=== PATIENT | male | born 1975 | race African-American/Black ===

== ENCOUNTER 2020-01-21 13:17 | Emergency (ER) | payer OTHER, SELFPAY ==
--- NOTE | ~2020-01-21 | CT_ITS ---
EXAMINATION: CT cervical spine wo con DATE: 01/21/2020 14:46 INDICATION: Neck pain and left arm tingling TECHNIQUE: Computed tomography (CT) of the cervical spine was performed without intravenous contrast. Automated exposure control and iterative reconstruction technique were employed. The dose-length pro duct was 380.17 mGy-cm. COMPARISON: None FINDINGS: Straightening of the normal cervical lordosis. No spondylolisthesis or facet subluxation. Vertebral b aquilino heights are normal. No fracture. Disc heights are normal. Cervical soft tissues are normal. Emphy sema with bullous changes most prominent at the right apex. Middle ear cavities and visualized portio ns of the sphenoid sinus, mastoid air cells and airway are clear. The following disc levels are speci fically discussed: C2-C3: Disc is mildly bulging. There is minimal bilateral uncovertebral joint osteoarthritis. There i s minimal bilateral facet joint osteoarthritis. There is no neural foraminal stenosis. There is mild central canal stenosis. C3-C4: Moderate-sized central disc protrusion versus extrusion. There is mild bilateral uncovertebral joint osteoarthritis. There is minimal bilateral facet joint osteoarthritis. There is mild bilateral neural foraminal stenosis. There is moderate central canal stenosis measuring 5 mm in the mid sagitt al plane. C4-C5: Disc is bulging, eccentric to the left. There is mild bilateral uncovertebral joint osteoarthr itis. There is minimal bilateral facet joint osteoarthritis. There is mild bilateral neural foraminal stenosis. There is mild central canal stenosis. C5-C6: Disc is mildly bulging. There is mild bilateral uncovertebral joint osteoarthritis. There is m inimal bilateral facet joint osteoarthritis. There is mild bilateral neural foraminal stenosis. There is mild central canal stenosis. C6-C7: Disc is mildly bulging. There is mild bilateral uncovertebral joint osteoarthritis. There is m inimal bilateral facet joint osteoarthritis. There is mild bilateral neural foraminal stenosis. There is mild central canal stenosis. C7-T1: The disc does not extend beyond the endplate margin. There is no uncovertebral joint osteoarth ritis. There is mild bilateral facet joint osteoarthritis. There is minimal left neural foraminal claribel nosis. There is no central canal stenosis. IMPRESSION: 1. Mild cervical spondylosis most notable for a moderate sized disc protrusion versus extrusion at C3 -C4 which results in moderate central canal stenosis. Reviewed, dictated and finalized at location A. IMPRESSION: 1. Mild cervical spondylosis most notable for a moderate sized disc protrusion versus extrusion at C3-C4 which results in moderate central canal stenosis.
[2020-01-21 13:19] VITALS: BP 121/73; PULSE 101; RESP 18; TEMP 36.4; O2SAT 98
[2020-01-21] MEDS: KETOROLAC (*BKC) 60 MG/2 ML VIAL IM (14:27)
[2020-01-21 15:00] VITALS: TEMP 36.4
--- NOTE | 2020-01-21 15:00 | ED.UPPEXIN ---
HPI - Extremity Injury (Upper) General Chief Complaint: Extremity Injury, Upper Stated Complaint: sciatic nerve Time Seen by Provider: 01/21/20 14:04 Source: patient Mode of arrival: ambulatory Limitations: no limitations History of Present Illness HPI narrative: This is a 44 year old male that presents to the ER for acute on chronic neck pain. Reports he has had trouble with his neck for over 10 years. Reports no new injury or trauma. Reports over the last week the pain has worsened. He takes gabapentin and a muscle relaxer at home for this. Reports he has tingling in the left arm. Denies weakness, decreased range of motion, or numbness. Related Data Home Medications Medication Instructions Recorded Confirmed No Home Medications 01/21/20 01/21/20 Allergies Allergy/AdvReac Type Severity Reaction Status Date / Time No Known Allergies Allergy Verified 01/21/20 13:43 Review of Systems Review of Systems: Narrative: CONSTITUTIONAL: Denies fever SKIN: Denies rash MUSCULOSKELETAL: Reports joint pain, and myalgia. NEUROLOGIC: Denies numbness, or weakness. All systems reviewed & are unremarkable except as noted in HPI and below PMFSH Past Medical History Medical History (Updated 01/21/20 @ 15:25 by Ashanti Reno PA-C) History of asthma Surgical History Surgical History (Updated 01/21/20 @ 15:03 by Ashanti Reno PA-C) History of appendectomy Social History Social History (Updated 01/21/20 @ 15:02 by Ashanti Reno PA-C) Substance use: never Gender identity (if verbalized by the patient): Male Exam Narrative: Exam Narrative: GENERAL: Well-appearing, well-nourished, and in no acute distress. HEAD: Normocephalic, atraumatic. EYES: EOMI. NECK: Supple. No adenopathy or masses. No midline spinal tenderness CHEST: Clear to auscultation. No respiratory distress. No wheezes rales or rhonchi HEART: Regular rate and rhythm. No murmur heard. Normal peripheral pulses. EXTREMITIES: Normal range of motion. No edema. Strength equal in bilateral upper extremities (5/5). Normal radial pulse SKIN: Warm, dry, no rash. NEURO: No focal deficits. Alert and oriented x3. PSYCH: Normal mood and affect Course Vital Signs Vital signs: Vital Signs Temperature 97.6 F 01/21/20 13:19 Pulse Rate 101 H 01/21/20 13:19 Respiratory Rate 18 01/21/20 13:19 Blood Pressure 121/73 01/21/20 13:19 Pulse Oximetry 98 01/21/20 13:19 Temperature 97.6 F 01/21/20 13:19 Pulse Rate 101 H 01/21/20 13:19 Respiratory Rate 18 01/21/20 13:19 Blood Pressure 121/73 01/21/20 13:19 Pulse Oximetry 98 01/21/20 13:19 MDM - Extremity Injury (Upper) MDM Narrative Medical decision making narrative: Patient presents the emergency department for acute on chronic neck pain. No new injuries or trauma. Patient has normal strength in the bilateral upper extremities. CT scan of the cervical spine shows mild cervical spondylosis. Patient has a moderate sized disc protrusion at C3/C4. Patient will be given neurosurgery for follow-up. Patient is stable and felt appropriate for further outpatient evaluation. He was given warnings to return to the ER Imaging Data Radiologist's impression: ITS Impressions Cervical Spine CT 01/21/20 14:54 IMPRESSION: 1. Mild cervical spondylosis most notable for a moderate sized disc protrusion versus extrusion at C3-C4 which results in moderate central canal stenosis. Critical Care Time Critical Care Time Critical Care Time: No Discharge Plan Discharge Clinical Impression: Cervical radiculopathy Patient Disposition: Home, Self-Care Condition: Stable Instructions: Cervical Radiculopathy (ED) Additional Instructions: Return to the ER if you experience weakness, numbness, or any other symptoms that are concerning to you Rest, use ice/heat, take anti-inflammatories (Aleve, Ibuprofen, Naproxen, etc) or Tylenol as needed for pain as well as muscle
== END 2020-01-21 15:38 | disposition home or self-care (01) ==
PROVIDERS: Emergency Provider Emergency Medicine
DX: M54.12 Radiculopathy, cervical region (principal); M47.812 Spondylosis without myelopathy or radiculopathy, cervical region; J45.909 Unspecified asthma, uncomplicated
CPT/HCPCS: 72125; 96372; 99284; J1885

== ENCOUNTER 2020-02-22 11:24 | Emergency (ER) | payer OTHER, SELFPAY ==
[2020-02-22 11:28] VITALS: BP 114/72; PULSE 88; RESP 18; TEMP 36.3; O2SAT 95
--- NOTE | 2020-02-22 11:58 | ED.GENADULT ---
HPI - General Adult General Chief complaint: Neck Pain/Injury <Vinod Norris PA-C - Last Filed: 02/22/20 12:05> Stated complaint: neck pain <LAKEISHA Atkins Last Filed: 02/22/20 12:05> Time Seen by Provider: 02/22/20 11:31 <LAKEISHA Atkins Last Filed: 02/22/20 12:05> Source: patient <LAKEISHA Atkins Last Filed: 02/22/20 12:05> Mode of arrival: ambulatory <Vinod Norris PA-C - Last Filed: 02/22/20 12:05> Limitations: no limitations <Vinod Norris PA-C - Last Filed: 02/22/20 12:05> History of Present Illness HPI narrative: Patient is a 35-year-old male who presents with 1 week duration of pain to the left cervical and trapezius region patient notes aching pain worse with touch and activity notes some radicular symptoms into the arm has had these symptoms stemming from an injury in the past patient denies new injury or trauma was recently seen prescribed anti-inflammatories which he notes are not helping effectively patient has follow-up with primary care in the near future patient on arrival is otherwise resting comfortably in no distress <Vinod Norris PA-C - Last Filed: 02/22/20 12:05> Related Data Allergies/adverse reactions: Allergies Allergy/AdvReac Type Severity Reaction Status Date / Time No Known Allergies Allergy Verified 01/21/20 13:43 <LAKEISHA Atkins Last Filed: 02/22/20 12:05> Review of Systems Review of Systems: All systems reviewed & are unremarkable except as noted in HPI and below <Vinod Norris PA-C - Last Filed: 02/22/20 12:05> [facility] Past Medical History Medical History: Medical History History of asthma <LAKEISHA Atkins Last Filed: 02/22/20 12:05> Surgical History Surgical History: Surgical History History of appendectomy <LAKEISHA Atkins Last Filed: 02/22/20 12:05> Social History Social History: Social History Substance use: never Gender identity (if verbalized by the patient): Male <Vinod Norris PA-C - Last Filed: 02/22/20 12:05> Exam Narrative: Exam Narrative: GENERAL: Well-appearing, well-nourished, and in no acute distress. HEAD: Normocephalic, atraumatic. EYES: PERRLA and EOMI. ENT: Nares clear, no rhinorrhea or epistaxis. Mucous membranes moist. NECK: Supple. No adenopathy or masses. CHEST: Clear to auscultation. No respiratory distress. No wheezes rales or rhonchi HEART: Regular rate and rhythm. No murmur heard. EXTREMITIES: Normal range of motion. No edema. Tenderness of the left paraspinal and trapezius musculature SKIN: Warm, dry, no rash. NEURO: No focal deficits. Alert and oriented x3. Neurovascularly intact. Motor and sensory intact. PSYCH: Normal mood and affect. <Vinod Norris PA-C - Last Filed: 02/22/20 12:05> Course Course Emergency Course: Patient in the room in no distress felt appropriate for discharge home advised to continue to follow with primary care provided with reasons to return will be placed on a muscle relaxer <Vinod Norris PA-C - Last Filed: 02/22/20 12:05> Vital Signs Vital signs: Vital Signs Temperature 97.4 F L 02/22/20 11:28 Pulse Rate 88 02/22/20 11:28 Respiratory Rate 18 02/22/20 11:28 Blood Pressure 114/72 02/22/20 11:28 Pulse Oximetry 95 02/22/20 11:28 Temperature 97.4 F L 02/22/20 11:28 Pulse Rate 80 02/22/20 12:16 Respiratory Rate 14 02/22/20 12:16 Blood Pressure 120/68 02/22/20 12:16 Pulse Oximetry 96 02/22/20 12:16 <Vinod Norris PA-C - Last Filed: 02/22/20 12:05> Vital Signs Temperature 97.4 F L 02/22/20 11:28 Pulse Rate 88 08/04/20 11:28 Respiratory Rate 18 02/22/20 11:28 Blood Pressure 114/72 02/22/20 11:28 Pulse Oximetry 95
[2020-02-22 12:16] VITALS: BP 120/68; PULSE 80; RESP 14; O2SAT 96
== END 2020-02-22 12:18 | disposition home or self-care (01) ==
PROVIDERS: Emergency Provider General Practice
DX: M54.12 Radiculopathy, cervical region (principal)
CPT/HCPCS: 99283

== ENCOUNTER 2020-05-08 09:10 | Observation (INO) | payer OTHER, SELFPAY ==
[2020-05-08] VITALS (7 sets, daily range): BP systolic 113–131; BP diastolic 69–85; PULSE 63–103; RESP 16–20; TEMP 36.1–36.9; O2SAT 100; BMI 24.2
--- NOTE | ~2020-05-08 | MR_ITS ---
EXAMINATION: MR brain/brain stem wo con DATE: 05/09/2020 07:11 INDICATION: Headache. Left arm paresthesias. TECHNIQUE: Magnetic resonance imaging (MRI) of the brain and brainstem was performed without intraven ous contrast. Sequences included sagittal and axial T1-weighted SE, axial diffusion-weighted FS SE, a xial T2*-weighted GRE, axial T2-weighted FLAIR, and axial T2-weighted FSE. Postcontrast axial and cor onal T1-weighted SE was obtained. Apparent diffusion coefficient (ADC) maps were created. COMPARISON: Head CT and CT angiogram dated 05/08/2020 FINDINGS: There are no areas of restricted diffusion to suggest acute infarction. No intracranial hemorrhage or abnormal intracranial mass lesion. There are no intraparenchymal signal abnormalities seen on the ot her pulse sequences. The ventricles are symmetric and normal in size. There are no abnormal extra-axi al fluid collections. Flow voids are seen in the cerebral arteries on the T2-weighted sequences consi stent with their expected patency. Minimal mucosal thickening in the paranasal sinuses. Visualized or bits and soft tissues are unremarkable. IMPRESSION: 1. Normal brain. No acute intracranial process. Reviewed, dictated and finalized at location A.
--- NOTE | ~2020-05-08 | MR_ITS ---
EXAMINATION: MR cervical spine wo con DATE: 05/09/2020 07:46 INDICATION: Left arm paresthesias TECHNIQUE: Magnetic resonance imaging (MRI) of the cervical spine was performed without intravenous c ontrast. Sequences included sagittal T2-weighted FSE, sagittal T2-weighted FS FSE, sagittal T1-weight ed FSE, axial MERGE and axial T2-weighted FSE. COMPARISON: Cervical spine CT dated 01/21/2020 FINDINGS: Straightening of the normal cervical lordosis Vertebral body heights are normal. Bone marrow signal intensity is normal. 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 Disc heights are relative ly preserved with disc desiccation from C2-C3 through C6-C7. There is a 1 x 1.5 mm fluid signal inten sity lesion centered in the right side of the cord at the level of at the cephalad aspect of C5. Cord signal intensity is otherwise normal. Cervical soft tissues are unremarkable. The following disc lev els are specifically discussed: C2-C3: The disc does not extend beyond the endplate margin. There is minimal bilateral uncovertebral joint osteoarthritis. There is mild left and minimal right facet joint osteoarthritis. There is no ne ural foraminal stenosis. There is no central canal stenosis. C3-C4: Disc is bulging with superimposed central annular fissure and disc extrusion with disc materia l extending up to 3 mm cephalad and caudal to the level of the endplates. There is mild bilateral unc overtebral joint osteoarthritis. There is mild left and minimal right facet joint osteoarthritis. The re is mild bilateral neural foraminal stenosis. There is moderate to severe central canal stenosis wh ich measures 5 mm AP in the mid sagittal plane at the site of the disc extrusion. There is deformatio n of the cord which is widened left or right and flattened with focal indention of the central ventra l surface of the cord resulting from the disc extrusion. There is negligible remaining CSF signal juarez ng the left side of the cord. C4-C5: Disc is bulging eccentric to the left where there is superimposed annular fissure. There is mi ld bilateral uncovertebral joint osteoarthritis. There is mild left and minimal right facet joint ost eoarthritis. There is mild right and mild to moderate left neural foraminal stenosis. There is modera te central canal stenosis with mild flattening of the left ventral surface of the cord. C5-C6: Disc is mildly bulging. There is mild bilateral, left greater than right uncovertebral joint o steoarthritis. There is mild bilateral facet joint osteoarthritis. There is mild right and mild to mo derate left neural foraminal stenosis. There is mild central canal stenosis. C6-C7: Disc is bulging with annular fissure. There is mild right and mild to moderate left uncoverteb ral joint osteoarthritis. There is mild left and minimal right facet joint osteoarthritis. There is m ild right and mild to moderate left neural foraminal stenosis. There is moderate central canal stenos is with mild flattening of the left ventral surface of the cord. C7-T1: The disc does not extend beyond the endplate margin. There is no uncovertebral joint osteoarth ritis. There is mild bilateral facet joint osteoarthritis. There is minimal left neural foraminal claribel nosis. There is no central canal stenosis. IMPRESSION: 1. Mild cervical spondylosis superimposed over a congenitally small central canal and the mid cervica l spine most notable for disc extrusion at C3-C4 resulting in moderate to severe central canal stenos is. 2. 1 x 1.5 x 3 mm fluid signal intensity lesion in the right side of the cord near the level of the C 4-C5 disc space where there is additional mild to moderate central canal stenosis suggesting degenera tive disc disease related to myelomalacia. Reviewed, dictated and finalized at location A. Electronically signed by Johnathan Johnson M.D. on 1
--- NOTE | ~2020-05-08 | CT_ITS ---
EXAMINATION: CTA brain carotid DATE: 05/08/2020 15:35 INDICATION: Dizziness. TECHNIQUE: Computed tomographic angiography (CTA) of the head was performed with 100 mL Omnipaque-350 intravenous contrast. CTA of the neck was performed with intravenous contrast. Automated exposure co ntrol and iterative reconstruction technique were employed. The dose-length product was 1281.95 mGy-c m. Maximum intensity projection and volume rendered 3D-reconstructions were created by the [email or web address] [address] on a separate workstation. COMPARISON: Head CT 05/08/2020 FINDINGS: HEAD CTA: There is no intracranial hemorrhage, acute infarction, or abnormal intracranial mass lesion . The ventricles are normal in size. There is an old blowout fracture of medial wall of left orbit. T here are old fractures of the nasal bones and nasal processes of maxilla. There is minimal mucosal th ickening in the paranasal sinuses. The mastoid air cells are normal. The vertebral arteries are codom inant. There is no significant stenosis of basilar artery or the posterior cerebral arteries. There i s no significant stenosis of the intracranial internal carotid arteries or anterior or middle cerebra l arteries. Anterior communicating artery is normal. The posterior communicating arteries are normal. There is no aneurysm. NECK CTA: There is mild emphysema. There are no pathologically enlarged lymph nodes. There is no sign ificant stenosis of the vertebral arteries. The cervical internal carotid arteries are normal. There is 0% stenosis of the proximal right internal carotid artery relative to normal distal artery lumen d iameter (NASCET criteria). There is 0% stenosis of the proximal left internal carotid artery relative to normal distal artery lumen diameter. There is developmental osseous central canal stenosis from C 1 to C6. There is mild cervical spondylosis. IMPRESSION: 1. Normal brain. No aneurysm or significant intracranial arterial stenosis. 2. Normal neck arteries. 3. Mild emphysema. Reviewed, dictated and finalized at location A.
--- NOTE | ~2020-05-08 | CT_ITS ---
EXAMINATION: CT BRAIN W/O DATE: 05/08/2020 09:56 INDICATION: Headache TECHNIQUE: Computed tomography (CT) of the head was performed without intravenous contrast. The dose- length product was 605.33 mGy-cm. The mA was adjusted according to patient size. Iterative reconstruc tion technique was employed. COMPARISON: CT dated 02/22/2013 FINDINGS: Normal brain parenchymal volume for age. Normal ca-white differentiation. No acute intrac ranial hemorrhage, infarction, mass or mass effect. There is an old fracture of the left lamina papyr acea. No ventriculomegaly or midline shift. Midline sagittal images demonstrate a normal corpus callosum, c raniovertebral junction and sella turcica. Basilar cisterns are patent. Paranasal sinuses and mastoids are pneumatized. No depressed skull fractures. IMPRESSION: 1. No acute intracranial abnormality. Reviewed, dictated and finalized at location B.
--- NOTE | 2020-05-08 09:23 | ED.GENADULT ---
HPI - General Adult General Chief complaint: Headache Stated complaint: Headache Time Seen by Provider: 05/08/20 09:18 Source: patient History of Present Illness HPI narrative: Patient is a 45 y/o male complaining of right sided headache since 9:00 PM last night. He describes his headache as a pressure and rates it as 10/10. He states that he took muscle relaxer, which did not help. He denies any fever, chills or new focal weakness/numbness. He states that he has some chronic neck pain and left arm numbness due to pinched nerve. He also has been having dizziness with room spinning sensation since about the same time last night. Related Data Home Medications Medication Instructions Recorded Confirmed gabapentin 100 mg PO DAILY 05/08/20 05/08/20 Allergies Allergy/AdvReac Type Severity Reaction Status Date / Time No Known Allergies Allergy Verified 05/08/20 16:15 Review of Systems Constitutional: Constitutional: Denies chills, Denies fever(s), Reports headache(s) and Denies weakness Eyes: Eyes: Denies blurry vision ENT: Reports headache(s) and Reports neck pain (chronic) Cardiovascular: Cardiovascular: Denies chest pain and Denies dyspnea Respiratory: Respiratory: Denies cough and Denies dyspnea Gastrointestinal: Gastrointestinal: Denies abdominal pain, Denies diarrhea, Denies nausea and Denies vomiting Genitourinary: Genitourinary: Denies hematuria and Denies dysuria Musculoskeletal: Musculoskeletal: Denies back pain and Denies neck pain Neurologic: Reports dizziness, Reports headache(s), Reports numbness (chronic left arm numbness) and Denies weakness PMF Past Medical History Medical History (Updated 05/08/20 @ 16:33 by Nicole Chong MD) History of asthma Surgical History Surgical History History of appendectomy Family History Family History (Updated 05/08/20 @ 16:21 by Veronique Jones RN) Father Heart attack Patient's father is Mother Diabetes mellitus Social History Social History Smoking packs per day: 1 Smoking cigarettes per day: 20.0 Years smoked: 23 Smoking pack-years: 23.00 Smoking status: Former smoker Tobacco type: cigarettes Alcohol intake: current Drinks per week: 6 Substance use: never Substance use type: marijuana Last use: 05/06/20 Gender identity (if verbalized by the patient): Male Spiritual care concerns: No Exam Const: General: no acute distress and well developed Orientation/consciousness: oriented to person, oriented to place, oriented to time and patient oriented x3 HENMT: Head: normocephalic Ears: external ears normal General nose exam: Normal external nose present Eyes: General: appearance normal, both eyes and all related structures Conjunctivae: conjunctivae normal Neck: Neck: normal visual inspection and full ROM Chest: Chest palpation & inspection: normal inspection of the chest and no tenderness Resp: Effort & Inspection: normal respiratory effort Auscultation: clear to auscultation bilaterally Cardio: Rate: regular rate Rhythm: regular rhythm GI: GI Palp: No abdominal tenderness and Yes Soft to palpation Skin: General skin exam: normal color and turgor normal Neuro: General: oriented to person, oriented to place, oriented to time and patient oriented x3 Cranial nerves: Yes CN's II-XII intact bilaterally Cognition (Neuro): normal cognition Speech: normal speech Motor exam (neuro): 5/5 motor strength present throughout Sensory Exam: normal sensation Coordination: [id number] test normal Extrem: General: normal to inspection, full ROM and no pedal edema Psych: Appearance: grossly normal Mental Status: mental status grossly normal Affect: normal affect Course Consultations Consultation #1: Discussed with Dr. Sal, who agrees to consult. He recommends ordering ESR and CTA. Date: 05/08/20
[2020-05-08] MEDS: SODIUM CHLORIDE 0.9% IV 1,000 ML 999 ML IV CONT (09:35)
[2020-05-08] MEDS: METOCLOPRAMIDE HCL INJ 10 MG/2 ML VIAL IV PUSH (09:36)
[2020-05-08] MEDS: diphenhydrAMINE HCl INJ 50 MG/ML VIAL IV PUSH (09:36)
[2020-05-08] MEDS: KETOROLAC 30 MG/ML VIAL (*BKC) IV PUSH (09:36)
[2020-05-08 09:40] LABS: Basophils Absolute Auto 0.1 K/mm3 (0.0-0.1); Basophils Percent Auto 0.8 % (0.2-1.2); Eosinophils Absolute Auto 0.1 K/mm3 (0-0.3); Eosinophils Percent Auto 1.9 % (0-4.4); Hematocrit 42.1 % (42.0-52.0); Hemoglobin 14.4 g/dL (14.0-18.0); Immature Granulocyte Absolute 0.02 K/mm3 (0.00-0.031); Immature Granulocyte Percent A 0.3 % (0-0.5); Lymphocytes Absolute Auto 3.11 K/mm3 (0.9-3.2); Lymphocytes Percent Auto 41.5 % (18.3-44.2); Mean Corpuscular HGB Conc 34.2 g/dl (32-36); Mean Corpuscular Hemoglobin 29.9 pg (26-34); Mean Corpuscular Volume 87.3 fl (80-100); Mean Platelet Volume 10.2 fl (7.4-10.4); Monocytes Absolute Auto 0.6 K/mm3 (0.1-0.6); Monocytes Percent Auto 7.6 % (2.6-8.5); Neutrophils Absolute Auto 3.6 K/mm3 (1.3-6.7); Neutrophils Percent Auto 47.9 % (45.5-73.1); Nucleated Red Blood Cells Perc 0.5 % (0.0-0.2); Platelet Count Result 205 k/mm3 (150-375); Red Blood Count 4.82 M/mm3 (4.6-6.20); White Blood Count 7.5 K/mm3 (4.5-10.0)
[2020-05-08 09:54] LABS: Anion Gap 4 mmol/L (8-16); Blood Urea Nitrogen 9 mg/dL (9-20); Calcium 9.1 mg/dL (8.4-10.2); Carbon Dioxide 29 mmol/L (22-30); Chloride 107 mmol/L (98-107); Estimated CRCL calculation 105 ml/min; Estimated Glomerular Filt Rate > 60; Glucose 119 mg/dL (75-110); Potassium 4.1 mmol/L (3.4-5.0); Sodium 140 mmol/L (137-145)
--- NOTE | 2020-05-08 10:30 | PC.NURSE ---
Lying on stretcher with eyes closed. In no distress.
--- NOTE | 2020-05-08 11:15 | PC.NURSE ---
Resting on cart. c/o headache when awaken.
[2020-05-08] MEDS: DIHYDROERGOTAMINE MESYLATE 1 MG/ML AMP IV PUSH (12:04)
[2020-05-08] MEDS: VALPROIC ACID INJ 500 MG in DEXTROSE 5% 100 ML 100 MG IVPB (12:25)
[2020-05-08] MEDS: methylPREDNISolone SOD SUCC 125 MG VIAL IV PUSH (15:11)
[2020-05-08 15:37] LABS: CRP < 0.5 mg/dL (<1.0)
[2020-05-08] MEDS: MECLIZINE HCL 25 MG TABLET PO (15:37)
[2020-05-08 15:48] LABS: Erythrocyte Sedimentation Rate 4 mm/hr (0-20)
--- NOTE | 2020-05-08 17:15 | PM.IMHP ---
H&P: HPI History of Present Illness Date/Time: 05/08/20 17:15 <Elizabeth Del Cid PA-C - Last Filed: 05/08/20 19:28> Chief complaint: Headache/Dizziness <Elizabeth Del Cid PA-C - Last Filed: 05/08/20 19:28> Narrative: Darryl Meade is a 45-year-old male smoker with history of cervical spondylosis, disc protrusion at C3-C4, and chronic left-sided neck pain secondary to such who presented to the emergency department earlier today from home for evaluation of a headache as well as dizziness. He has chronic left-sided neck pain with occasional left upper extremity weakness and tingling which has been attributed to cervical stenosis and disc protrusion as detailed above. This has been plaguing him for quite some time and he was referred to a neurosurgeon at [facility] but cannot get an appointment until February of 2021; reportedly no other neurosurgeons in the region take his insurance. He is on gabapentin and cyclobenzaprine for his chronic pain, and will utilize heat on occasion. Last evening he developed a pain in the right side of his neck which is unusual, followed by a pretty severe headache that is now diffusely throughout the right side of his head into the anglican which he describes as a severe squeezing sensation. He took a naproxen shortly after the symptoms began without much relief. At about the same time as his headache started he began feeling dizzy which he further qualifies as vertigo, reporting to me that he feels off balance. His left arm paresthesias seem to be worse than baseline as well. He has not had any recent falls or trauma. No fever, chills, sweats, sinus congestion, rhinorrhea, otalgia, and odynophagia. He has not had sick contacts. No photophobia or phonophobia. <Elizabeth Del Cid PA-C - Last Filed: 05/08/20 19:28> Review of Systems Review of Systems: Narrative: Twelve systems were reviewed with pertinent positives and negatives as per HPI. Except as documented, all other systems were reviewed and are negative. <Elizabeth Del Cid PA-C - Last Filed: 05/08/20 19:28> [facility] Past Medical History Medical History: Medical History (Updated 05/08/20 @ 19:19 by Elizabeth Del Cid PA-C) Cervical spondylosis Mild cervical spondylosis on imaging dated 01/21/2020. Former smoker History of asthma Childhood asthma, no recent issues. Protrusion of cervical intervertebral disc Moderate-sized disc protrusion at C3-C4 resulting in moderate central canal stenosis on imaging dating 01/21/2020. <Elizabeth Del Cid PA-C - Last Filed: 05/08/20 19:28> Surgical History Surgical History: Surgical History History of appendectomy <Elizabeth Del Cid PA-C - Last Filed: 05/08/20 19:28> Family History Family History: Family History Father Heart attack Patient's father is Mother Diabetes mellitus <Elizabeth Del Cid PA-C - Last Filed: 05/08/20 19:28> Social History Social History: Social History (Updated 05/08/20 @ 19:15 by Elizabeth Del Cid PA-C) Social History: Surrogate decision maker: Monica Frost, girlfriend. Code status: Full code. Smoking packs per day: 1 Smoking cigarettes per day: 20.0 Years smoked: 23 Smoking pack-years: 23.00 Smoking status: Former smoker Tobacco type: cigarettes Alcohol intake: current Drinks per week: 6 Substance use: never Substance use type: marijuana Last use: 05/06/20 Additional living arrangements comments: Lives in [place] with his girlfriend. He has 8 children. Additional occupation/education comments: Not currently employed. Gender identity (if verbalized by the patient): Male Spiritual care concerns: No <Elizabeth Del Cid PA-C - Last Filed: 05/08/20 19:28> Meds Home Medications and Allergies Home medications: Home Medications Medication Inst
[2020-05-09] VITALS: PULSE 114
--- NOTE | 2020-05-09 01:20 | ECG_ITS ---
Measurements Intervals [place] Rate: 102 P: 44 [place]: 149 QRS: 1 QRSD: 87 T: 44 QT: 331 QTc: 432 Interpretive Statements SINUS TACHYCARDIA DELAYED PRECORDIAL R/S TRANSITION BORDERLINE ECG Electronically Signed On 05-09-2020 6:51:06 CDT by Silvano Vasquez D.O.
[2020-05-09 04:00] VITALS: PULSE 110
[2020-05-09 06:00] VITALS: BP 117/80; PULSE 103; RESP 20; TEMP 37.1; O2SAT 96
[2020-05-09 06:42] LABS: Thyroid Stimulating Hormone Reflex 0.209 uIU/mL (0.465-4.68)
[2020-05-09 08:00] VITALS: PULSE 105
[2020-05-09] MEDS: GABAPENTIN 100 MG CAPSULE PO (08:01)
[2020-05-09 09:45] LABS: Free T4 Free Thyroxine Reflex 1.44 ng/dL (0.78-2.19)
--- NOTE | 2020-05-09 10:58 | WPDNEURCNPN ---
Assessment and Plan Assessment and plan (1) Left cervical radiculopathy: Code(s): M54.12 - Radiculopathy, cervical region Status: Acute (2) Right-sided headache: Code(s): R51.9 - Headache, unspecified Status: Acute Additional Plan MRI of the cervical spine has been done which has documented C3-C4 disc extrusion resulting in the moderate to severe central canal stenosis in addition to the presence of the congenitally small central [place] MRI of the brain is normal and CTA has documented no evidence of aneurysm or significant intracranial arterial stenosis that is patient can be followed as an outpatient he can return to our office for the follow-up in about 4 to 6 weeks then I will try to get him seen by a neurosurgeon S and [facility]in was [facility] or [facility] Consult date: 05/09/20 Time Seen: 10:45 HPI: Darryl Meade is a 45 year old male Admitted to the hospital for the complaints of headaches with dizziness in addition to the history of ongoing cervical spondylosis with cervical disc protrusion at the level of C3-C4 and chronic left-sided neck pain additionally patient has been complaining of occasional left upper extremity weakness he has been referred to the neurosurgeon at [facility] an appointment will be on 8 that is February of 2021 at present he is receiving gabapentin and cyclobenzaprine for his chronic pain patient does have ongoing history of bronchial asthma though he does not smoke Review of Systems Review of Systems: All systems reviewed & are unremarkable except as noted in HPI and below PMFSH Past Medical History Medical History (Updated 05/08/20 @ 19:19 by Elizabeth Del Cid PA-C) Cervical spondylosis Mild cervical spondylosis on imaging dated 01/21/2020. Former smoker History of asthma Childhood asthma, no recent issues. Protrusion of cervical intervertebral disc Moderate-sized disc protrusion at C3-C4 resulting in moderate central canal stenosis on imaging dating 01/21/2020. Surgical History Surgical History History of appendectomy Family History Family History Father Heart attack Patient's father is Mother Diabetes mellitus Social History Social History (Updated 05/08/20 @ 19:15 by Elizabeth Del Cid PA-C) Social History: Surrogate decision maker: Monica Frost, girlfriend. Code status: Full code. Smoking packs per day: 1 Smoking cigarettes per day: 20.0 Years smoked: 23 Smoking pack-years: 23.00 Smoking status: Former smoker Tobacco type: cigarettes Alcohol intake: current Drinks per week: 6 Substance use: never Substance use type: marijuana Last use: 05/06/20 Additional living arrangements comments: Lives in [place] with his girlfriend. He has 8 children. Additional occupation/education comments: Not currently employed. Gender identity (if verbalized by the patient): Male Spiritual care concerns: No Meds Home Medications and Allergies Home Medications Medication Instructions Recorded Confirmed Type cyclobenzaprine 10 mg PO TID PRN #20 tablet 02/22/20 05/08/20 Rx gabapentin 100 mg PO DAILY 05/08/20 05/08/20 History Allergies Allergy/AdvReac Type Severity Reaction Status Date / Time No Known Allergies Allergy Verified 05/08/20 16:15 Vital Signs Vital Signs - 24 hr 05/08/20 13:34 05/08/20 15:34 05/08/20 16:00 Temperature Pulse Rate 87 92 92 Respiratory Rate 20 18 18 Blood Pressure 113/81 121/85 121/85 Pulse Oximetry 100 100 100 05/08/20 16:34 05/08/20 20:00 05/08/20 22:00 Temperature 36.1 C L 36.9 C Pulse Rate 63 97 103 H Respiratory Rate 16 20 Blood Pressure 131/69 120/81 Pulse Oximetry 100 100 05/09/20 00:00 05/09/20 04:00 05/09/20 06:00 Temperature 37.1 C Pulse Rate 114 H 110 H 103 H Respiratory Rate 20 Blood Pressure 117/80 Pul
--- NOTE | 2020-05-09 11:20 | PM.DS ---
DS: Admitting Diagnosis Admitting Diagnosis Admitting Diagnosis: Headache/Dizziness DS: Discharge Diagnosis Discharge Diagnosis (1) Vertigo: Code(s): R42 - Dizziness and giddiness Status: Acute (2) Right-sided headache: Code(s): R51.9 - Headache, unspecified Status: Acute (3) Left cervical radiculopathy: Code(s): M54.12 - Radiculopathy, cervical region Status: Acute DS: Summary Hospital Course Reason for hospitalization: Darryl Meade is a 45-year-old male smoker with history of cervical spondylosis, disc protrusion at C3-C4, and chronic left-sided neck pain secondary to such who presented to the emergency department earlier today from home for evaluation of a headache as well as dizziness. He has chronic left-sided neck pain with occasional left upper extremity weakness and tingling which has been attributed to cervical stenosis and disc protrusion as detailed above. This has been plaguing him for quite some time and he was referred to a neurosurgeon at [place] but cannot get an appointment until February of 2021; reportedly no other neurosurgeons in the region take his insurance. He is on gabapentin and cyclobenzaprine for his chronic pain, and will utilize heat on occasion. Last evening he developed a pain in the right side of his neck which is unusual, followed by a pretty severe headache that is now diffusely throughout the right side of his head into the mormon which he describes as a severe squeezing sensation. He took a naproxen shortly after the symptoms began without much relief. At about the same time as his headache started he began feeling dizzy which he further qualifies as vertigo, reporting to me that he feels off balance. His left arm paresthesias seem to be worse than baseline as well. He has not had any recent falls or trauma. No fever, chills, sweats, sinus congestion, rhinorrhea, otalgia, and odynophagia. He has not had sick contacts. No photophobia or phonophobia. <Elizabeth Saldivar. Hospital Course: patient is a 45-year-old male with significant cervical spine disease cervical spondylosis, disc protrusion at C3-C4, presented emergency department with complaint neck pain and headache to further evaluate patient had a CTA of the head which showed Normal brain. No aneurysm or significant intracranial arterial stenosis, patient also had MRI of C-spine which showed1. Mild cervical spondylosis superimposed over a congenitally small central canal and the mid cervical spine most notable for disc extrusion at C3-C4 resulting in moderate to severe central canal stenosis. 2. 1 x 1.5 x 3 mm fluid signal intensity lesion in the right side of the cord near the level of the C4-C5 disc space where there is additional mild to moderate central canal stenosis suggesting degenerative disc disease related to myelomalacia. also had MRI of the brain which essentially normal patient was seen by Neurology suspect most likely patient's symptoms stemming from central canal stenosis it seems chronic patient will benefit from PT, patient is clinically stable and will discharge the patient. Status at Discharge Functional status at discharge: independent ambulation Overall status at discharge: patient is back to baseline Time Spent with Patient Time attestation: Total time spent providing and/or coordinating discharge services: Patient was seen and examined at the time of the discharge Condition at discharge is stable Code status: Full code. Time spent preparing discharge summary, discharge medications, discussing discharge planning with nurse outreach case manager and patient is 30 minutes. Time spent: Less than 30 minutes Exam Narrative: Exam Narrative: Patient is comfortable, NAD HEENT: eyes are clear and none icteric LUNGS:CTA HEART: RR S1S2 ABD: BS+, Soft and nontender Lower extremities: no edema SKIN: nonjaundiced Neuro: grossly intact. DS: Data Data Completed and Pending Labs on day of discharge: Labs from last 24 h
[2020-05-09 12:00] VITALS: PULSE 121
== END 2020-05-09 13:30 | disposition home or self-care (01) ==
LOC: ANHED 15:29 → ANH3MEDSUR 16:04
PROVIDERS: Physician Assistant; Admitting Provider Family Medicine; Emergency Provider Emergency Medicine; PCP Family Medicine; Visit Provider Family Medicine
DX: R42 Dizziness and giddiness (principal); R51.9 Headache, unspecified; M47.22 Other spondylosis with radiculopathy, cervical region; Z87.891 Personal history of nicotine dependence; G89.29 Other chronic pain; Z79.899 Other long term (current) drug therapy
CPT/HCPCS: 36415; 70450; 70496; 70498; 70551; 72141; 80048; 84439; 84443; 84480; 85025; 85652; 86140; 93005; 96361; 96365; 96375; 99285; A9270; G0378; G0379; J1110; J1200; J1885; J2765; J2930; J7030; Q9967

== ENCOUNTER 2020-10-03 15:21 | Emergency (ER) | payer OTHER, SELFPAY ==
[2020-10-03 15:47] VITALS: BP 126/88; PULSE 70; RESP 18; TEMP 36.2; O2SAT 98
[2020-10-03] MEDS: KETOROLAC (*BKC) 60 MG/2 ML VIAL IM (17:22)
--- NOTE | 2020-10-03 17:22 | ED.GENADULT ---
HPI - General Adult General Chief complaint: Back Pain/Injury Stated complaint: lower back pain Time Seen by Provider: 10/03/20 16:22 Source: patient Mode of arrival: ambulatory Limitations: no limitations History of Present Illness HPI narrative: Patient reports spasm-like pain to the left side that began after sneezing the other day. Patient states he has issues with muscle spasms and pain occasionally mostly in the area of his neck so he is on cyclobenzaprine and gabapentin. He states they have not resolved his discomfort so he came to the emergency department for evaluation. He denies direct injury or falls. Patient denies loss of bowel or bladder function or saddle paresthesia. Patient denies shortness of breath or chest pain. Related Data Home Medications Medication Instructions Recorded Confirmed gabapentin 100 mg PO DAILY 05/08/20 05/08/20 Allergies Allergy/AdvReac Type Severity Reaction Status Date / Time No Known Allergies Allergy Verified 10/03/20 16:17 Review of Systems Review of Systems: Narrative: CONSTITUTIONAL: Denies fever, chills, or sweats. EYES: Denies visual changes, redness, or discharge. ENT: Denies rhinorrhea, congestion, sore throat, or otalgia. CARDIOVASCULAR: Denies chest pain, palpitations, or edema. RESPIRATORY: Denies cough or dyspnea. GASTROINTESTINAL: Denies abdominal pain, nausea, vomiting, or diarrhea. GENITOURINARY: Denies dysuria or hematuria. SKIN: Denies rash or itching. MUSCULOSKELETAL: Reports back pain, denies joint pain, or myalgia. NEUROLOGIC: Denies headache, numbness, dizziness, or weakness. PSYCHIATRIC: Denies anxiety or depression. [facility] Past Medical History Medical History (Updated 10/03/20 @ 17:26 by Jade Stone PA-C) Cervical spondylosis Mild cervical spondylosis on imaging dated 01/21/2020. Former smoker History of asthma Childhood asthma, no recent issues. Protrusion of cervical intervertebral disc Moderate-sized disc protrusion at C3-C4 resulting in moderate central canal stenosis on imaging dating 01/21/2020. Surgical History Surgical History History of appendectomy Family History Family History Father Heart attack Patient's father is Mother Diabetes mellitus Social History Social History (Updated 05/08/20 @ 19:15 by Elizabeth Del Cid PA-C) Social History: Surrogate decision maker: Monica Frost, girlfriend. Code status: Full code. Smoking packs per day: 1 Smoking cigarettes per day: 20.0 Years smoked: 23 Smoking pack-years: 23.00 Smoking status: Former smoker Tobacco type: cigarettes Alcohol intake: current Drinks per week: 6 Substance use: never Substance use type: marijuana Last use: 05/06/20 Additional living arrangements comments: Lives in [place] with his girlfriend. He has 8 children. Additional occupation/education comments: Not currently employed. Gender identity (if verbalized by the patient): Male Spiritual care concerns: No Exam Narrative: Exam Narrative: GENERAL: Well-appearing, well-nourished, and in no acute distress. HEAD: Normocephalic, atraumatic. EYES: PERRLA and EOMI. ENT: Nares clear, no rhinorrhea or epistaxis. Mucous membranes moist. Oropharynx without tonsillar hypertrophy exudate or other lesions. Bilateral TMs pearly ca nonbulging NECK: Supple. No adenopathy or masses. CHEST: Clear to auscultation. No respiratory distress. No wheezes rales or rhonchi HEART: Regular rate and rhythm. No murmur heard. Normal peripheral pulses. BACK: Spasming with palpation of left paralumbar muscles. No vertebral point tenderness. Sensation and ROM distally intact. EXTREMITIES: Normal range of motion. No edema. SKIN: Warm, dry, no rash. NEURO: No focal deficits. Alert and oriented x3. PSYCH: Normal mood and affect. Course Vital Sig
== END 2020-10-03 17:58 | disposition home or self-care (01) ==
PROVIDERS: Emergency Provider Emergency Medicine; PCP Family Medicine
DX: S39.012A Strain of muscle, fascia and tendon of lower back, initial encounter (principal); Z87.891 Personal history of nicotine dependence; X50.9XXA Other and unspecified overexertion or strenuous movements or postures, initial encounter
CPT/HCPCS: 96372; 99283; J1885

== ENCOUNTER 2021-10-03 15:23 | Outpatient (CLI) | payer OTHER, SELFPAY ==
--- NOTE | 2021-10-03 | ECG_ITS ---
Measurements Intervals [place] Rate: 123 P: 51 [place]: 138 QRS: 21 QRSD: 82 T: 35 QT: 292 QTc: 419 Interpretive Statements SINUS TACHYCARDIA NONSPECIFIC T-WAVE ABNORMALITY ABNORMAL RHYTHM ECG COMPARED TO ECG 05/09/2020 01:29:07 T-WAVE ABNORMALITY NOW PRESENT Electronically Signed On 10-03-2021 20:28:44 CDT by Joi Islas M.D.
== END 2021-10-03 15:24 | disposition home or self-care (01) ==
LOC: ANHCARD 15:27
PROVIDERS: PCP Physician Assistant; Visit Provider Physician Assistant
DX: R00.0 Tachycardia, unspecified (principal); R94.31 Abnormal electrocardiogram [ECG] [EKG]
CPT/HCPCS: 93005

== ENCOUNTER 2021-11-02 13:34 | Outpatient (CLI) | payer OTHER, SELFPAY ==
--- NOTE | 2021-11-07 12:48 | WPDHOLTEREM ---
Holter/Event Monitor Holter/Event Monitor Date of procedure: 11/02/21 Holter/Event Procedure: 48 Hr Holter Monitor Indications: Abnormal EKG Conclusion: 1. 48 hour holter monitor on 11/02/21. 2. Underlying rhythm is sinus rhythm. HR range 52-148 bpm; average HR 101 bpm. 3. There are 6 premature supraventricular complexes. No supraventricular tachycardia. 4. There are 674 premature ventricular complexes, 1 ventricular couplet, 3 ventricular bigeminy and 6 ventricular trigeminy. No ventricular tachycardia. 5. No sinoatrial or atrioventricular blocks. No significant pauses greater than 2 seconds. 6. No symptoms available for correlation.
== END 2021-11-02 13:35 | disposition home or self-care (01) ==
LOC: ANHCARD 13:35
PROVIDERS: PCP Physician Assistant; Visit Provider Physician Assistant
DX: R94.31 Abnormal electrocardiogram [ECG] [EKG] (principal)
CPT/HCPCS: 93225; 93226